=== PATIENT | female | born 1975 | race Caucasian/White ===

== ENCOUNTER 2018-04-24 19:07 | Emergency (ER) | payer MEDICAID, SELFPAY ==
[2018-04-24 19:07] VITALS: BP 124/80; PULSE 97; RESP 20; TEMP 36.7; O2SAT 95; BMI 21.2
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
[2018-04-24] MEDS: HYDROcodone Bitartrate/Apap 5/325 Tablet PO (20:25)
== END 2018-04-24 20:26 | disposition home or self-care (01) ==
LOC: ED 20:14
PROVIDERS: Emergency Provider Emergency Medicine; Family Provider Student in an Organized Health Care Education/Training Program; PCP Student in an Organized Health Care Education/Training Program
DX: S00.33XA Contusion of nose, initial encounter (principal); Z79.899 Other long term (current) drug therapy; Y04.2XXA Assault by strike against or bumped into by another person, initial encounter; Y93.89 Activity, other specified; Y92.009 Unspecified place in unspecified non-institutional (private) residence as the place of occurrence of the external cause; Y99.8 Other external cause status
CPT/HCPCS: 99283

== ENCOUNTER → 2018-08-08 16:35 | Outpatient (CLI) | payer MEDICAID, SELFPAY ==
--- NOTE | 2018-08-08 16:39 | CT_ITS ---
STUDY: CT ABDOMEN AND PELVIS WITHOUT CONTRAST REASON FOR EXAM: Female, 43 years old. Right flank pain RADIATION DOSAGE (If Supplied By Facility): CTDIvol = ( 6.04 ) mGy, DLP = ( 276.33 ) mGycm TECHNIQUE: Transaxial images were obtained from the dome of the diaphragm to the symphysis pubis without oral contrast, and without intravenous contrast. Sagittal and coronal images were reconstructed. Individualized dose optimization techniques were used for this CT. COMPARISON: October 03, 2014 FINDINGS: Minor subsegmental atelectasis in left lower lobe. Moderate-sized pericardial effusion is observed Small hiatal hernia is present. Normal liver. Normal gallbladder and extrahepatic biliary system. Normal spleen. Normal pancreas. Normal bilateral adrenal glands. There is moderate dilatation of the right renal collecting system and moderate to severe dilatation of the ureter which appear to be in association with 2 calculi in the distal ureter proximal to the ureterovesical junction with the larger calculus measuring approximately 5 to 6 mm in size. No renal masses given on unenhanced nature of the study. Normal left kidney. Normal visualized stomach. Normal small intestine. Minor diverticular changes of the sigmoid colon without evidence for acute epiglottitis. Appendix not visualized status post appendectomy Normal abdominal aorta. Normal inferior vena cava. Normal retroperitoneum. Uterus not visualized status post hysterectomy Normal urinary bladder. Normal abdominal wall. Lumbar spine demonstrates mild spondylosis. CT/Abdomen/Pelvis without Cont IMPRESSION: Moderate to severe right hydroureteronephrosis secondary to 2 calculi in the distal ureter proximal to the ureterovesical junction the larger measuring approximately 5 to 6 mm in size. Minor diverticular changes of the colon without evidence for acute diverticulitis Electronically Signed: Davis Zheng MD at 17:03 EST , Service support ,
== END ==
PROVIDERS: Family Provider Student in an Organized Health Care Education/Training Program; PCP Student in an Organized Health Care Education/Training Program; Referring Provider Urology; Visit Provider Urology
DX: N13.30 Unspecified hydronephrosis (principal); R10.9 Unspecified abdominal pain
CPT/HCPCS: 74176

== ENCOUNTER 2018-08-13 12:52 | Day surgery (SDC) | payer MEDICAID, SELFPAY ==
[2018-08-13 13:11] VITALS: BP 101/68; PULSE 64; RESP 16; TEMP 36.9; O2SAT 99; BMI 21.1
--- NOTE | 2018-08-13 13:22 | PCM.DC.URO ---
Discharge Diet: No Restrictions Discharge Activity: May not drive while taking narcotic pain medications. May resume sexual activity in: 2 weeks Call your doctor if you observe: Fever of 101 or Higher, Inability to urinate, Shortness of breath, Chest pain, Calf discomfort, Uncontrolled pain Allergies/Adverse Reactions: Allergies Sulfa (Sulfonamide Antibiotics) Allergy (Verified 08/12/18 11:23) Hives Medications to take at Discharge Linaclotide [Linzess] 72 mcg PO DAILY PRN 04/24/18 Cephalexin [Keflex] 500 mg PO Q12 3 Days #6 cap 08/13/18 Hydrocodone Bitart/Apap 5-325 [[place] 5MG-325MG] 1 tab PO Q4H PRN PRN 7 Days #20 tab 08/13/18 Phenazopyridine HCl [Pyridium] 200 mg PO TID PRN PRN 7 Days #30 tab 08/13/18 The following prescriptions were given: Hydrocodone Bitart/Apap 5-325 [[place] 5MG-325MG] 1 tab PO Q4H PRN PRN 7 Days #20 tab PRN Reason: Pain Cephalexin [Keflex] 500 mg PO Q12 3 Days #6 cap Phenazopyridine HCl [Pyridium] 200 mg PO TID PRN PRN 7 Days #30 tab PRN Reason: Bladder Spasms Primary Care Physician: Darinel Roberts DO [Primary Care Provider] - Test Results: Test results from this visit will be discussed in further detail at your follow-up appointment, if applicable. Please Follow Up With: Christina Freed MD When: 1 week, call office for appt Proposed Discharge Date: 08/13/18
--- NOTE | 2018-08-13 13:25 | OP.PCM_ITS ---
Problem List (1) Right ureteral calculus Status: Acute Report of Operation Date of Procedure: 08/13/18 Pre-Operative Diagnosis: right ureteral calculus Post-Operative Diagnosis: same Surgery/Procedure Performed:: cystoscopy, right ureteral stent insertion. Description of Surgical Findings:: unable to get ureteroscopy past the distal ureter to the stone. stent inserted with significant urine through the stent. Type of Anesthesia:: General Specimen's removed: none Description of Procedure: The patient is a 43-year-old female presented the office with abdominal pain and a CT scan showing right distal ureteral calculus with hydronephrosis. After discussing the risks, benefits and alternatives to the procedure with the patient and her , we agreed to proceed with surgical intervention given that the stone is likely been present for about 3 weeks. She was taken to the operating room and placed on the operating room table in supine position. Anesthesia monitored the head, neck, airway, IV access, vital signs throughout the case. Once anesthesia was appropriately administered the patient was placed in dorsal lithotomy position was prepped and draped in usual sterile fashion. A cystourethroscopy was then performed revealing no evidence of bladder mucosal abnormality including lesion or mass or foreign body. There was increased injection throughout the entire bladder mucosa though. At this time the right ureteral orifice was clearly identified and was intubated with a 0.035 Glidewire. Fluoroscopy revealed that the Glidewire was curled in the renal pelvis. I was unable to pass the semirigid ureteroscope through the distal aspect of the ureter and utilized a 0.025 Glidewire. I was still unable to pass the scope and I made the decision to place a ureteral stent for passive dilation. Using the 0.035 Glidewire a 6 Frisian 24 cm double-J ureteral stent was easily placed with good curling in the renal pelvis as well as the urinary bladder. A significant amount of urine was seen exuding from the holes of the ureteral stent. The patient tolerated the procedure well and was awakened and taken to the recovery room in good condition. There were no complications during this procedure. Grafts/Implants Used: 6x24 JJ ureteral stent - Complications none - Admit VTE Documentation VTE Present on Admission: Yes VTE Mechan Device Prophylaxis: SCD's VTE Pharm Prophylaxis ordered?: No Reason prophylaxis not ordered:: Treatment Not Indicated
[2018-08-13] MEDS: Cefazolin 2 GM in 0.9% Normal Saline 100 ML IV (14:10)
[2018-08-13 14:23] VITALS: BP 100/70; BP 101/68; PULSE 60; RESP 18; TEMP 36.2; O2SAT 100
[2018-08-13 14:30] VITALS: BP 101/68; BP 106/68; PULSE 72; RESP 18; O2SAT 100
[2018-08-13 14:39] VITALS: BP 101/68; BP 97/68; PULSE 65; RESP 16; TEMP 36.2; O2SAT 100
[2018-08-13 15:25] VITALS: BP 101/68; BP 107/69; PULSE 66; RESP 16; TEMP 36.2; O2SAT 100
== END 2018-08-13 15:28 | disposition home or self-care (01) ==
LOC: SDC 12:53 → AC 12:54
PROVIDERS: Family Provider Student in an Organized Health Care Education/Training Program; PCP Student in an Organized Health Care Education/Training Program; Referring Provider Urology; Visit Provider Urology
PROC: 0TJ98ZZ Inspection of Ureter, Via Natural or Artificial Opening Endoscopic (ICD-10-PCS; CPT 52352; principal; 2018-08-13 14:15)
DX: N13.2 Hydronephrosis with renal and ureteral calculous obstruction (principal); K21.9 Gastro-esophageal reflux disease without esophagitis; Z87.442 Personal history of urinary calculi; Z87.891 Personal history of nicotine dependence; Z79.899 Other long term (current) drug therapy
CPT/HCPCS: 00910; 52332; 76000; J7120; C1769; C2617; J2405

== ENCOUNTER 2018-09-03 09:06 | Day surgery (SDC) | payer MEDICAID, SELFPAY ==
[2018-09-03] VITALS (7 sets, daily range): BP systolic 85–114; BP diastolic 65–81; PULSE 58–74; RESP 16–18; TEMP 36.8–36.9; O2SAT 96–100; BMI 21.6
--- NOTE | 2018-09-03 | CALC_PTH ---
PATIENT: SANDRA ANGULO LOC: [facility] – [place] U#:[id number] AGE/SX: 43/F ROOM: RE09/03/[address]: Dr. Christina Freed MD : 1975 BED: DIS: 09/03/2018 SPEC #: [id number] RECD: 09/03/18 12:38 STATUS: YONI FANI #: [id number] KYLE: 09/03/18 00:[address]: Christina Freed DEPT: SURGICAL PATHOLOGY RECD BY: Mick Funes ENTERED: 09/03/18 12:38 SP TYPE: Calculi OTHR DR: Dr. Darinel Roberts, Tissues: CALCULI Procedures: Surgery Specimen Level I HEADER OPERATION: Cysto, ureteroscopy, retro, laser, stent change PRE-OP DIAGNOSIS: Right distal ureteral calculus with pain TISSUE SUBMITTED: Right distal ureteral calculi GROSS DIAGNOSIS A fragment of stone, clinically right distal ureteral calculus, submitted entirely for analysis. SJ:julisa 09/03/18 COMMENT The calculus is submitted in its entirety for chemical stone analysis. The results from this study will be reported separately. GROSS DESCRIPTION Received is one container labeled with the patient's name and designated right distal ureteral calculi. The specimen consists of a fragment of nunez-light brown stone measuring 0.2 x 0.1 x 0.1 cm. The entire specimen is submitted for stone analysis. / AMY:julisa 09/03/18 CPT: 47968
--- NOTE | 2018-09-03 08:49 | DCINST_ITS ---
Discharge Diet: No Restrictions Discharge Activity: May not drive while taking narcotic pain medications. May resume sexual activity in: 2 weeks Call your doctor if you observe: Fever of 101 or Higher, Inability to urinate, Shortness of breath, Chest pain, Calf discomfort, Uncontrolled pain Allergies/Adverse Reactions: Allergies Sulfa (Sulfonamide Antibiotics) Allergy (Verified 09/02/18 15:20) Hives Medications to take at Discharge Linaclotide [Linzess] 72 mcg PO DAILY PRN 04/24/18 Primary Care Physician: Darinel Roberts DO [Primary Care Provider] - Test Results: Test results from this visit will be discussed in further detail at your follow- up appointment, if applicable. Please Follow Up With: Christina Freed MD When: next week for stent removal, call office for appt. Proposed Discharge Date: 09/03/18
[2018-09-03] MEDS: Cefazolin 2 GM in 0.9% Normal Saline 100 ML IV (10:05)
--- NOTE | 2018-09-03 10:42 | PCM.OPRPT ---
Problem List (1) Right ureteral calculus Status: Acute Report of Operation Date of Procedure: 09/03/18 Pre-Operative Diagnosis: right ureteral calculus Post-Operative Diagnosis: same Surgery/Procedure Performed:: cystoscopy, right ureteroscopy, laser lithotripsy, stone basket extraction and right ureteral stent change Description of Surgical Findings:: stones identified, removed and stent changed. Type of Anesthesia:: General Estimated Blood Loss (mL): 2cc Description of Procedure: The patient is a 43-year-old female who presented 2-3 weeks ago for ureteroscopy and laser lithotripsy of a distal right ureteral calculus. At that time I was unable to obtain access to the stone due to ureteral swelling and a ureteral stent was left in place. The patient now presents for definitive treatment of her stone and stent change. Informed consent was obtained. Patient was taken to the operating room and placed on the operating room table. Anesthesia monitored the head neck, airway, IV access, vital signs throughout the case. Once anesthesia was appropriately administered, the patient was placed in 2 dorsal lithotomy position. She was prepped and draped in usual sterile fashion. A cystourethroscopy was performed and the stent was identified. A 0.035 Glidewire was passed alongside the stent into the renal pelvis. The ureteral stent was then removed through the scope. A semirigid ureteroscope was then used for right ureteroscopy and the stone fragments, multiple, were identified. A 270 ?m laser fiber was used to fragment the stones into multiple small pieces which were then basket removed without difficulty. When the last piece was removed, the ureteroscope was exchanged for the cystoscope and a 6 Vietnamese 24 cm double-J stent was inserted using the indwelling 0.035 Glidewire. Good curling was achieved in the renal pelvis as well as the urinary bladder. The case was done using assistance of fluoroscopy. At this time the bladder was emptied and the Patient was taken to the recovery room in good condition. There were no complications during this procedure. Grafts/Implants Used: right JJ stent - Complications none - Admit VTE Documentation VTE Present on Admission: Yes VTE Mechan Device Prophylaxis: SCD's VTE Pharm Prophylaxis ordered?: No Reason prophylaxis not ordered:: Treatment Not Indicated
[2018-09-09 17:10] LABS: Ca Oxalate, Dihydrate 20 % (.); Ca Oxalate, Monohydrate 65 % (.); Calcium Phosphate 15 % (.)
== END 2018-09-03 12:31 | disposition home or self-care (01) ==
LOC: SDC 09:06 → AC 09:08
PROVIDERS: Family Provider Student in an Organized Health Care Education/Training Program; PCP Student in an Organized Health Care Education/Training Program; Referring Provider Urology; Visit Provider Urology
PROC: 0TJ98ZZ Inspection of Ureter, Via Natural or Artificial Opening Endoscopic (ICD-10-PCS; CPT 52352; principal; 2018-09-03 10:35)
DX: N20.1 Calculus of ureter (principal); K21.9 Gastro-esophageal reflux disease without esophagitis; Z87.891 Personal history of nicotine dependence; Z79.899 Other long term (current) drug therapy
CPT/HCPCS: 52320; 52356; 76000; 82360; 88300; J7120; C1769; C2617; J2405

== ENCOUNTER 2018-09-25 16:02 | Emergency (ER) | payer MEDICAID, SELFPAY ==
[2018-09-03 09:36] VITALS: BMI 21.6
[2018-09-25 16:04] VITALS: BP 113/78; PULSE 97; RESP 15; TEMP 38.2; O2SAT 98; BMI 21.4
[2018-09-25] MEDS: DiphenhydrAMINE 25 MG Capsule PO (16:32)
[2018-09-25] MEDS: predniSONE 20 MG Tablet 60 MG PO (16:32)
--- NOTE | 2018-09-25 16:42 | ED.VISSUMM ---
- ER Visit Summary Date of Service: 09/25/18 Chief Complaint: Rash History of Present Illness: The patient is a 43 F who developed URI symptoms and fever yesterday. She was seen at her PCPs office and was told she had a virus. She woke this morning with diffuse erythema, itching, and burning sensation to her skin. She states she did take Tylenol last night before bed which was a generic brand that she has not taken before. Otherwise there have been no new medications. She states that she did have slight erythema to her face and chest over the past 3 days. She did take 25 mg of Benadryl 1 hour prior to arrival. Physical Examination: Vital signs significant for temperature 100.8 TA in triage. At the time of my examination her oral temperature is 98.3. Other vitals are normal. Patient is sitting upright in bed. She is nontoxic appearing. Head and neck examination is grossly unremarkable. Heart is regular rate and rhythm. Lung sounds are clear. Abdomen is soft and nontender. Skin examination was diffuse erythema to her face and chest with more patchy erythema to her back, abdomen, and upper thighs. This appears to be consistent with viral exanthem. I do not see true urticaria. There are no target lesions are blistered areas. Test Results: [] Emergency Department Course and Treatment: Patient is given an additional 25 mg of Benadryl and 60 mg of prednisone. On repeat evaluation erythema over the face and neck seem to be improving. She does not feel like her skin is burning like it was previously. Rash on her back that is more patchy and consistent with viral exanthem is unchanged. Because patient did have improvement with the Benadryl and prednisone she will be given prescription for prednisone and will continue Benadryl at home. If she worsens she is to return for repeat evaluation. Treatment Plan: [] Disposition: Discharge Impression: Viral exanthem This note was generated with [employer] dictation software. It may contain incorrect words, spelling, and punctuation that were not noted in review of the chart prior to signing ED Disposition - Plan for ED Patient: Referrals: Darinel Roberts DO [Primary Care Provider] -
--- NOTE | 2018-09-25 18:05 | ED.DEP ---
ED Disposition - Plan for ED Patient: Disposition: Home or Assisted Living Instructions: ED Allergic Reaction General Other Prescriptions: Ibuprofen 400 mg PO Q6H PRN PRN #20 tablet PRN Reason: Fever Prednisone 10 mg PO UD #33 tablet Referrals: Darinel Roberts DO [Primary Care Provider] - 3-5 Days
[2018-09-25 18:17] VITALS: BP 135/69; PULSE 75; RESP 16; O2SAT 98
== END 2018-09-25 18:18 | disposition home or self-care (01) ==
PROVIDERS: Emergency Provider Emergency Medicine; Family Provider Student in an Organized Health Care Education/Training Program; PCP Student in an Organized Health Care Education/Training Program
DX: B09 Unspecified viral infection characterized by skin and mucous membrane lesions (principal); Z87.442 Personal history of urinary calculi; Z87.891 Personal history of nicotine dependence
CPT/HCPCS: 99283

== ENCOUNTER 2019-02-27 08:45 | Emergency (ER) | payer OTHER, MEDICAID, SELFPAY ==
[2019-02-27 08:47] VITALS: BP 103/66; PULSE 63; RESP 16; TEMP 36.3; O2SAT 99; BMI 21.4
--- NOTE | 2019-02-27 09:06 | US_ITS ---
STUDY: ABDOMINAL ULTRASOUND - RIGHT UPPER QUADRANT REASON FOR VISIT: Female, 43 years old. Abdominal pain TECHNIQUE: Ultrasound evaluation of the right upper quadrant was performed with real-time and static perez-scale imaging. TECHNICAL QUALITY: Adequate. COMPARISON: None. FINDINGS: Liver: The liver measures 14.9 and a cm. There is normal echogenicity of the liver. The bile ducts are within normal limits. There is hepatic color flow. The direction of portal flow is hepatopetal. There is no demonstrated mass lesion. Gallbladder: There is shadowing obscuring visualization of the gallbladder. There is positive sonographic Hathaway's sign. Common Bile Duct (C.B.D.): The common bile duct measures 3 mm. Pancreas: Normal size of the head, body and tail of the pancreas. There is normal echogenicity of the pancreas. There is no demonstrated pancreatic mass or cyst. Right Kidney: Normal size of the right kidney. The right kidney measures 10.7 cm. Normal renal cortex. The right cortex measures 2 cm. There is no demonstrated renal mass or cyst. There is no right hydronephrosis. US/Gallbladder IMPRESSION: The gallbladder is not visualized due to overlying bowel gas and/or contraction. There is positive sonographic Hathaway sign. Normal caliber CBD. Electronically Signed: Rosendo Kim, at 10:26 EDT Tel , Service support ,
--- NOTE | 2019-02-27 09:08 | ED.DCSUM_ITS ---
- ER Visit Summary Date of Service: 02/27/19 Chief Complaint: Abdominal pain and possible dehydration History of Present Illness: The patient is a 43 F who presents with right upper quadrant abdominal pain that has been constant for the past 2 weeks. Patient states she knows she has a bad gallbladder and was told that if she had pain under her right ribs to come to the emergency department. Patient states the pain is worse with standing and better when she sits or lays down. Patient admits to some intermittent nausea but denies any vomiting. Patient states the pain radiates to her right shoulder. Patient states that she works 7 days a week and is unable to drink water on her job. Patient states she feels like she is dehydrated. Physical Examination: Vital signs are stable. Patient is afebrile. Patient is in no acute distress. Oral mucosa is pink and moist. Neck is supple. Trachea is midline. There is no JVD noted. Heart was regular rate and rhythm. Lungs are clear and equal bilaterally. Abdomen is soft. Bowel sounds are normal. There is right upper quadrant tenderness. There is a positive Hathaway sign. There is no rebound or guarding noted. Cranial nerves II through XII are intact. There are no focal motor or sensory deficits noted. Test Results: CBC and comprehensive metabolic profile was obtained and were within normal limits. Ultrasound of the gallbladder was obtained. The gallbladder was not well visualized to either contraction or overlying bowel gas. There is a positive sonographic Hathaway sign. Common bile duct was normal. The other bile ducts are normal. Liver is normal. Emergency Department Course and Treatment: Patient was given IV fluids. Patient was feeling better on reevaluation. Patient was instructed to follow-up with her primary care physician as scheduled. Patient was instructed to drink plenty of fluids. Patient understood and was agreeable with the plan. All questions were answered. Disposition: Discharge home Impression: Right upper quadrant abdominal pain This note was generated with [employer] dictation software. It may contain incorrect words, spelling, and punctuation that were not noted in review of the chart prior to signing ED Disposition - Plan for ED Patient: Disposition: Home or Assisted Living Diagnosis: Right upper quadrant abdominal pain Instructions: ABDOMINAL PAIN, Unknown Cause, (Female) Referrals: Darinel Roberts, [Primary Care Provider] - Keep Trice appointment
[2019-02-27] MEDS: 0.9% Normal Saline 1,000 ML 1000 ML IV (09:21)
[2019-02-27 09:29] LABS: Absolute Lymphocyte Count 1.89 X10^3/uL (0.83-4.51); Absolute Neutrophil Count 3.2 X10^3/uL (2.0-7.7); Basophil# 0.04 X10^3/uL; Basophil% 0.7 % (0-1); Eosinophil# 0.07 X10^3/uL; Eosinophils% 1.3 % (0-5); Hematocrit 37.5 % (37-47); Hemoglobin 12.4 g/dL (12.0-15.0); Lymphocyte # 1.89 X10^3/ul (4.0); Lymphocyte % 34.2 % (19-41); Mean Corp Hgb Conc 33.1 g/dL (32-36); Mean Corpuscular Volume 84.7 fL (81-99); Mean Platelet Vol. 9.1 fl (6.2-12.0); Monocyte# 0.27 X10^3/uL; Monocyte% 4.9 % (0-10); NRBC Flagged by Analyzer 0 % (0-5); Neutrophil # 3.24 X10^3/uL (2.7-7.7); Neutrophil % 58.5 % (47-70); Platelet Count 295 K/mm3 (150-450); RBC Distribution Width CV 12.5 % (11.6-14.6); RBC Distribution Width SD 38.1 fl (35.1-43.9); Red Blood Count 4.43 M/mm3 (4.2-5.4); White Blood Count 5.5 K/mm3 (4.4-11.0)
[2019-02-27 09:45] LABS: ALB/GLOB Ratio 1.3 RATIO (0.9-2.4); AST(SGOT) 15 U/L (15-37); Alanine Aminotransfer ALT/SGPT 18 U/L (13-56); Alkaline Phosphatase 79 U/L (45-117); Anion Gap 7 (5-15); BUN 7 mg/dL (7-18); BUN/Creat Ratio 9.9 RATIO (10-20); Calcium,Total 9.4 mg/dL (8.5-10.1); Chloride 108 mmol/L (98-107); Creatinine, Serum 0.71 mg/dL (0.55-1.02); EST Glomerular Filtration Rate 94 mL/min (>60); Est Glom Filt Rate - Afr Amer 114 mL/min (>60); Estimated Creatinine Clearance 100.94 ml/min; Glucose 90 mg/dL (74-106); Lipase 120 U/L (73-393); Potassium 3.8 mmol/L (3.5-5.1); Sodium Level 144 mmol/L (136-145)
[2019-02-27 11:12] VITALS: BP 112/67; PULSE 52; RESP 16; O2SAT 100
== END 2019-02-27 11:25 | disposition home or self-care (01) ==
PROVIDERS: Emergency Provider Emergency Medicine; Family Provider Student in an Organized Health Care Education/Training Program; PCP Student in an Organized Health Care Education/Training Program
DX: R10.11 Right upper quadrant pain (principal)
CPT/HCPCS: 76705; 80053; 83690; 85025; 96360; 99283; J7030; A4216

== ENCOUNTER 2019-03-04 09:37 | Day surgery (SDC) | payer OTHER, MEDICAID, SELFPAY ==
[2019-03-04] VITALS (7 sets, daily range): BP systolic 98–121; BP diastolic 61–93; PULSE 60–84; RESP 16; TEMP 36.1–36.6; O2SAT 97–100; BMI 21.4
--- NOTE | 2019-03-04 | IMM_PTH ---
PATIENT: SANDRA ANGULO LOC: [facility] [place] U#:[id number] AGE/SX: 43/F ROOM: RE03/04/[address]: Dr. Heaven Charles MD : 1975 BED: DIS: 03/04/2019 SPEC #: [id number] RECD: 03/06/19 07:47 STATUS: YONI REQ #: [id number] KYLE: 03/04/19 00:[address]: Heaven Charles DEPT: IMMUNOHISTOCHEMISTRY RECD BY: Aruna Miller ENTERED: 03/06/19 07:48 SP TYPE: IMMUNO OTHR DR: Dr. Darinel Roberts DO Tissues: Skin of abdomen, NOS Procedures: CK5-6 (initial) MACRO (add) MART1 (add) P40 (add) S-100 (add) PHYSICIAN & INSTITUTION [place] [id number] SPECIMEN INFORMATION: Tissue Source: B. Skin lesion, abdomen Clinical Info: Cholelithiasis, right upper quadrant abdominal pain Specimen Number: [id number] CPT code: 03216, 31195 x4 METHODOLOGY: Deparaffinized sections of prefer/formalin-fixed tissue or PAP/DQ stained slides are incubated with monoclonal/polyclonal antibodies/oligonucleotide probes. Localization is made via biotin free immunoperoxidase method. Appropriate controls are performed and reacted as expected. Results on target cell population are indicated in the following table: RESULTS: ANTIBODY / CLONE RESULT Block B S-100 (4C4.9) positive MART-1 (A-103) positive CK5-6 (D5 & 1684) negative P40 (BC28) negative Macro (HAM-56) negative These tests were developed and their performance characteristics determined by [facility]. They may not have been cleared or approved by the U.S. Food and Drug Administration. The FDA has determined that such clearance or approval is not necessary. INTERPRETATION: B. Skin lesion, abdomen, shave biopsy: Atypical compound melanocytic proliferation. See comment. SJ:julisa 03/11/19 Comment: The specimen was sent to [facility] for expert opinion and reviewed by Dr. Harris and above diagnosis is rendered. Case has been reviewed in consultation with Dr. Harvey who concurs with the above diagnosis. IDC:AM
--- NOTE | 2019-03-04 09:21 | PCM.HP.BLA ---
History and Physical Date of Admission: 03/04/19 Lesly Gregory 1975 ? ? CHIEF COMPLAINT: Abdominal Pain ? HPI: The patient is a 43 year old female presents with right upper quadrant abdominal pain. She has had previous diagnosis of cholelithiasis, but at the time, she was asymptomatic and did not want to schedule for surgery. She presented to [facility] ED 02/27/19 with abdominal pain and dehydration. She complains that she can't drink water - her work won't allow it. 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 She states that she has to stand on a step to work the machinery and gets dizzy with this. She has increased tiredness. She denies fevers. Complains of sharp pain occasionally in the right upper quadrant of the abdomen, most of the time, it is a dull ache. ?? PAST MEDICAL HISTORY ? Anemia ? ? Chronic constipation ? ? Hydronephrosis concurrent with and due to calculi of kidney and ureter 09/2018 ? Kidney stone 09/2018 ? right side ? Lactose intolerance ? ? PAST SURGICAL HISTORY ? APPENDECTOMY ? 11/30/14 ? ruptured ? COLONOSCOP W/ OR W/O [facility] SPEC ? 01/23/2018 ? ESWL ? 09/2018 ? EXCIS BREAST LESION ? 2000 left breast ? TOOTH EXTRACTION ? 2002 ? TOTAL ABDOM HYSTERECTOMY 11/13/14 Hysterectomy, DAMARIS, BSO ? ? Current Outpatient Medications: benzonatate (TESSALON PERLE) 100 mg capsule Take 1 capsule by mouth three times daily as needed. linaclotide (LINZESS) 145 mcg cap Take 1 capsule by mouth once daily. multivitamin,therapeutic (MULTIVITAMIN-4) 1 mL once daily. fluticasone (FLONASE) 50 mcg/actuation nasal spray Use 2 Sprays in each nostril once daily. Rinse mouth after use. PSYLLIUM SEED, WITH DEXTROSE, (FIBER ORAL) Take by mouth. polyethylene glycol 3350 (MIRALAX) 17 gram/dose powder 17 g (~1 heaping tablespoon) 4 to 8 ounces of beverage, once daily. ? ? ALLERGIES: Sulfa (Sulfonamide Antibiotics); Tylenol [Acetaminophen]; Zantac [Ranitidine] ? PERSONAL HISTORY: Social History Socioeconomic History Marital status: Single Smoking status: Former Smoker Packs/day: 0.25 Years: 20.00 Pack years: 5 Types: Cigarettes Start date: 11/13/2014 Quit date: 01/24/2016 Years since quittin.0 Smokeless tobacco: Never Used Substance and Sexual Activity Alcohol use: No Drug use: No FAMILY HISTORY ? Cancer Sister ? kidney ? Diabetes Maternal Grandmother ? ? Skin Cancer Mother ? ? Cancer Sister? lung-smoker ? ? 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 PHYSICAL EXAMINATION: General: The patient is 43 year old female, well nourished, well hydrated in no acute distress. The patient is oriented to time, place, and person. VITALS: Blood pressure 100/60, pulse 92, temperature 36.7 ?C (98 ?F), temperature source Temporal Artery, resp. rate 16, height 172.7 cm (5' 8), weight 63.5 kg (140 lb), SpO2 100 %. Body mass index is 21.29 kg/m?. Head ? Normocephalic. EOM intact with sclera clear and no icterus noted. Mouth with mucus membranes moist. Neck - supple with no jugular venous distention noted. Trachea is midline. No masses noted. Lungs ? clear to auscultation. Normal breath sounds. No rales/rhonchi/wheezing noted. No labored breathing noted, such as retractions. No cough heard. Heart ? normal S1 and S2 auscultated. No rubs/clicks/murmurs noted. Regular rate. Abdomen ? soft and benign but tender in right upper quadrant with no peritoneal signs. Normal bowel sounds. No masses noted. Extremities ? no calf tenderness noted. No pitting edema noted. Skin ? normal skin integrity. Neurological ? gait normal, no focal deficits noted Psych ? calm and appropriate ? ? IMPRESSION: cholelithiasis, right upper quadrant abdominal pain ? PLAN: I have discussed the above with the patient . I have offered laparoscopic cholecystectomy, possible cholangiograms I have explained the procedure to the patient. I have counseled the patient as to the risks of the procedure, including but not limited to: infection, bleeding, injury to any blood vessels/nerves, scar tissue, injury to any intrabdominal organs, injury to bowel/bladder, injury to the common bile duct/biliary tree, bile leakage, intraabdominal abscess/bleeding, hernias at incisional sites, wound infections, complications of anesthesia, etc. ? the patient understands. The patient wishes to proceed. I have answered all questions to the patient?s satisfaction and the patient has no further questions. . Diagnoses: (R10.11) Right upper quadrant abdominal pain (primary encounter diagnosis) (K80.20) Calculus of gallbladder without cholecystitis without obstruction Return to Clinic: The patient is instructed to follow-up with me after the procedure in 1-2 weeks. ?
--- NOTE | 2019-03-04 09:47 | EKG12_ITS ---
Test Reason : PRE OP Blood Pressure : / mmHG Vent. Rate : 067 BPM Atrial Rate : 067 BPM P-R Int : 158 ms QRS Dur : 076 ms QT Int : 394 ms P-R-T Axes : 060 059 078 degrees QTc Int : 416 ms Normal sinus rhythm with sinus arrhythmia Normal ECG Confirmed by ZACHARIAH BUTTS, DWIGHT ([id number]), associate editor GINGER HANSEN ([id number]) on 03/11/2019 12:11:14 PM Referred By: Heaven Charles Confirmed By:DWIGHT SONI MD
[2019-03-04] MEDS: Lactated Ringers 1,000 ML 75 ML IV ×2 (10:23→14:25)
[2019-03-04] MEDS: Cefazolin 2 GM in 0.9% Normal Saline 100 ML IV (11:23)
--- NOTE | 2019-03-04 11:27 | DCINST_ITS ---
Discharge Diet: No Restrictions - drink plenty of water avoid carbonated beverages for a couple of days as this will cause bloating which will be uncomfortable after recent surgery Discharge Activity: Return to Normal Activity, May not drive while taking narcotic pain medications. Lifting Restrictions: no lifting greater than 20 pounds for two weeks Additional Activity Instructions:: Regular walking is highly encouraged Call your doctor if your incision/area has: Continuous Slow Oozing, Foul Smelling Discharge Call your doctor if you observe: Fever of 101 or Higher Additional Dressing/Incision Instructions:: leave dressings in place. may get wet in shower. do not soak - no tub baths/swimming Additional Instructions: recommended pain medication regimen: take 650 mg acetaminophen, then in three hours take 600 mg ibuprofen, then in three hours take 650 mg acetaminophen, then in three hours take 600 mg ibuprofen, and so on for about 2 days take narcotic pain medications for breakthrough pain and at night Allergies/Adverse Reactions: Allergies acetaminophen [From Tylenol] Allergy (Verified 03/04/19 10:06) Hives ranitidine [From Zantac] Allergy (Verified 03/04/19 10:06) Hives Sulfa (Sulfonamide Antibiotics) Allergy (Verified 03/04/19 10:06) Hives Medications to take at Discharge Multivitamin with Minerals [Multiple Vitamin] 1 ea PO DAILY 02/27/19 Oxycodone [Oxyir] 5 mg PO Q8H PRN PRN 5 Days #15 tab 03/04/19 The following prescriptions were given: Oxycodone [Oxyir] 5 mg PO Q8H PRN PRN 5 Days #15 tab PRN Reason: Mod-Severe Pain (4-04/17) Prescription Printed Primary Care Physician: Darinel Roberts DO [Primary Care Provider] - Test Results: Test results from this visit will be discussed in further detail at your follow- up appointment, if applicable. Please Follow Up With: Heaven Charles MD - call When: to be seen in 1-2 weeks, please call the office for time and date, thank tiarra
--- NOTE | 2019-03-04 11:30 | RAD_ITS ---
STUDY: INTRAOPERATIVE GLANDULAR. REASON FOR EXAM: Female, 43 years old. Laparoscopic cholecystectomy. FLUOROSCOPY TIME (if supplied): (4:07) minutes/seconds TECHNIQUE: An intraoperative quadrant was performed by the surgeon. Imaging was submitted. COMPARISON: None. FINDINGS: The intrahepatic ducts are unremarkable. The common bile duct is not dilated. A small air bubble is seen in the proximal portion of the common hepatic duct. Free flow of contrast is seen in duodenum. RAD/Cholangiogram/ O R,Initial IMPRESSION: Unremarkable intraoperative cholangiogram. Electronically Signed: Alexis Rai, at 14:34 EDT , Service support ,
--- NOTE | 2019-03-04 11:30 | GALL_PTH ---
PATIENT: SANDRA ANGULO LOC: [facility] [place] U#:[id number] AGE/SX: 43/F ROOM: RE03/04/[address]: Dr. Heaven Charles MD : 1975 BED: DIS: 03/04/2019 SPEC #: [id number] RECD: 03/04/19 13:41 STATUS: YONI REThuy #: [id number] KYLE: 03/04/19 11:[address]: Heaven Charles DEPT: SURGICAL PATHOLOGY RECD BY: Venkatesh Whittaker ENTERED: 03/04/19 14:26 SP TYPE: KARLIE PARKER DR: Dr. Darinel Roberts DO Tissues: A - Gallbladder, NOS B - Skin of abdomen, NOS Procedures: Surgery Specimen Level III Surgery Specimen Level IV HEADER OPERATION: Laparoscopic cholecystectomy with intraoperative cholangiograph PRE-OP DIAGNOSIS: Cholelithiasis, right upper quadrant abdominal pain TISSUE SUBMITTED: A. Gallbladder, B. Skin lesion, abdomen MICROSCOPIC DIAGNOSIS A. Gallbladder: Mild chronic cholecystitis and cholelithiasis. B. Skin lesion, abdomen, shave biopsy: Atypical compound melanocytic proliferation associated with a lichenoid inflammatory cell infiltrate and many melanophages, extending to the peripheral biopsy margins. See comment. SJ:sp/rg 03/11/19 COMMENT The specimen was sent to [facility] and reviewed by Dr. Harris and the above diagnosis is rendered. The complete report is viewable in patient's EMR. The comment was also made that complete excision of the lesion with a margin of normal non-scarred skin is recommended for complete histologic examination and treatment. Clinical correlation and appropriate follow up are necessary. Immunohistochemistry ([id number]) supports the above diagnosis. Case has been reviewed in consultation with Dr. Harvey who concurs with the above diagnosis. IDC:AM MICROSCOPIC DESCRIPTION Slides are reviewed. GROSS DESCRIPTION A. Received in fixative is one container labeled with the patient's name and designated gallbladder. The specimen consists of a previously, partially opened gallbladder measuring 9 cm in length and 2.5 cm in diameter. The external surface is pink-nunez, smooth and glistening for the most part. Focally it is granular, hemorrhagic and contains cautery artifact. The gallbladder contains a small amount of green-yellow mucoid bile and multiple yellow irregular stone and sludge material measuring in aggregate 3 x 2.5 x1 cm and 0.1 to 0.5 cm in greatest dimension. The mucosa is bile-stained and without any mass lesions. The gallbladder wall measures up to 0.2 cm in thickness. Electrical Instrument Technician sections from the gallbladder and the cystic duct are submitted in one cassette. B. Received in fixative is one container labeled with the patient's name and designated skin lesion abdomen. The specimen consists of a round piece of brown skin measuring 0.3 cm in diameter and 0.1 cm in length. The entire specimen is submitted in one cassette. / AMY:joann 03/04/19 TC: 5 CPT: 59781, 53048
[2019-03-04] MEDS: Bupiv/Epi 0.25% 30 ML Vial (12:55)
--- NOTE | 2019-03-04 13:26 | PCM.OPRPT ---
Report of Operation Date of Procedure: 03/04/19 Pre-Operative Diagnosis: cholelithiasis Post-Operative Diagnosis: cholelithiasis, chronic cholecystitis Surgery/Procedure Performed:: laparoscopic cholecystectomy with cholangiograms Description of Surgical Findings:: impacted stones in the cystic duct which were milked out, cholangiograms were normal, chronic adhesions over liver and around gallbladder consulting services project manager: Sarai Vaca Type of Anesthesia:: General Anesthesiologist: Jennifer Cloud Specimen's removed: gallbladder and contents Estimated Blood Loss (mL): < 10 ml Fluids Replaced: see anesthesia note Description of Procedure: After informed consent was given, the patient was brought to the Operating Room. Appropriate time out protocol was followed. She was then placed in the supine position. The patient was then placed under general endotracheal anesthesia. The abdomen was then prepped with a sterile surgical skin preparation and sterile surgical drapes were placed. The supra-umbilical skin fold was grasped with penetrating clamps and the skin and subcutaneous tissues were infiltrated with 0.25% marcaine with epinephrine. A skin incision was then made with a 15 blade scalpel. The incision was carried down and through the fascia under direct visualization. Once, the abdominal cavity was entered, a 12 mm trocar was placed. A CO2 pneumoperitoneum was then created. A 10mm laparoscope was then inserted into the trocar and careful attention was directed to the intraabdominal contents. There was no evidence of injury to any intraabdominal organs from insertion of the Veress needle or the trocar. Under direct visualization, a 5mm subxiphoid trocar and two lateral 5mm right subcostal trocars were placed. The skin and subcutaneous tissues at these sites were infiltrated with 0.25% marcaine with epinephrine prior to placement of these trocars. Attention was then directed to the right upper quadrant of the abdomen. There were dense adhesions over the dome of the liver. These were taken down by sharp dissection and electrocautery. Graspers were placed in the lateral trocars to grasp the distal aspect of the gallbladder and direct it cephalad and to grasp the gallbladder at Cat?s pouch and direct it laterally. There were dense adhesions around the gallbladder. These were taken down by blunt and sharp dissection. Any hemorrhage was adequately controlled with electrocautery. Dissection then began on the proximal gallbladder continuing down to the area of the triangle of Calot to bluntly dissect out the cystic duct. The cystic duct was isolated out. It appeared to have stones impacted within it. A clip was then placed on the neck of the gallbladder. A small ductotomy was then made. The stones in the cystic duct were milked out and removed via the ductotomy. This took some time. However, the entire cystic duct was cleared of stones. A Ranfac catheter was brought in through a separate skin incision and placed into the cystic duct. An intraoperative cholangiogram was performed under fluoroscopy. The xray revealed no lesions in the common bile duct, arborization of the biliary tree, and good flow into the duodenum. The Ranfac catheter was then removed and two clips were placed proximal to the ductotomy and the cystic duct was then transected. The cystic artery was visualized and bluntly isolated and then two clips were placed proximally and one clip distally and then it was transected between the proximal and distal clips. The gallbladder was then from the liver bed using electrocautery. It was to be brought out of the umbilical port. It was then forwarded to pathology for analysis. The liver bed was carefully examined. There was no evidence of bile leakage or bleeding. The cystic duct stump and cystic artery stump had their clips intact and there was no evidence of bile leakage or bleeding. The remainder of the abdomen was grossly normal. The CO2 was released and all trocars removed intact. The periumbilical fascia was approximated with a [id number] 0 vicryl suture. All skin incision were closed with 4-0 monocryl in a subdermal fashion. Cavilol and Steristrips were used to reinforce the skin closure. Sterile dressings were applied to all wounds. The patient was extubated and brought to the Recovery Room in stable condition. - Complications none noted - Admit VTE Documentation VTE Present on Admission: Yes VTE Mechan Device Prophylaxis: SCD's
== END 2019-03-04 15:46 | disposition home or self-care (01) ==
LOC: SDC 09:38 → AC 09:39
PROVIDERS: Family Provider Student in an Organized Health Care Education/Training Program; PCP Student in an Organized Health Care Education/Training Program; Referring Provider Surgery; Visit Provider Surgery
PROC: (CPT 47610; principal; 2019-03-04 11:10)
DX: K80.10 Calculus of gallbladder with chronic cholecystitis without obstruction (principal); K82.8 Other specified diseases of gallbladder; L98.8 Other specified disorders of the skin and subcutaneous tissue; K21.9 Gastro-esophageal reflux disease without esophagitis; J30.9 Allergic rhinitis, unspecified; Z87.442 Personal history of urinary calculi; Z87.891 Personal history of nicotine dependence; Z79.899 Other long term (current) drug therapy
CPT/HCPCS: 47563; 74300; 76000; 88304; 88305; 88341; 88342; 93005; J7120; J2405

== ENCOUNTER → 2020-04-14 | Outpatient (CLI) | payer MEDICAID, SELFPAY ==
[2019-03-04 10:06] VITALS: BMI 21.4
--- NOTE | 2020-04-14 16:06 | RAD_ITS ---
STUDY: X-RAY - ABDOMEN/PELVIS REASON FOR EXAM: Female, 44 years old. HX OF KIDNEY STONES ON BOTH SIDES PER PATIENT. HX OF A LITHOTRIPSY ABOUT 1 YEAR AGO. TECHNIQUE: Two AP supine views of the abdomen and pelvis. COMPARISON: Report of previous study of 11/30/2014 FINDINGS: Normal visualized lung bases. There is an unremarkable bowel gas pattern. There is no demonstrated free abdominal air. The visualized liver, spleen and kidneys are grossly normal in size and morphology. Surgical clips are seen in the left pelvis. There is a small sclerotic focus of the left iliac wing seen on prior CT study of the abdomen and pelvis of 10/31/2014. RAD/Abdomen Single View IMPRESSION: Small sclerotic focus of the left iliac wing most likely representing benign process such as bone island. Surgical clips of the left pelvis. No abnormal intra-abdominal or intrapelvic calcifications are seen. There is no evidence of ileus or obstruction. Electronically Signed: Harsh Slaughter MD at 21:19 EDT , Service support ,
== END | disposition home or self-care (01) ==
LOC: MTRAD 16:05
PROVIDERS: PCP Student in an Organized Health Care Education/Training Program; Referring Provider Urology; Visit Provider Urology
DX: N20.0 Calculus of kidney (principal)
CPT/HCPCS: 74018

== ENCOUNTER 2021-09-10 08:53 | Outpatient (CLI) | payer MEDICAID, SELFPAY ==
--- NOTE | 2021-09-10 09:02 | US_ITS ---
STUDY: RENAL ULTRASOUND - COMPLETE REASON FOR EXAM: Female, 46 years old. STONE TECHNIQUE: Ultrasound evaluation of the kidneys was performed with real-time and static العراقي-scale imaging. COMPARISON: August 08, 2018 CT scan abdomen and pelvis FINDINGS: RIGHT KIDNEY: Normal location of the right kidney, which is normal in size. The right kidney measures 10.9 x 4.7 x 4.5 cm. There is a normal cortex of the right kidney. The renal cortex measures 1.3 cm. There is no right renal mass or cyst. There are no right renal calculi. There is no right hydronephrosis. The hydronephrosis seen on prior study right kidney, has resolved DISTAL RIGHT URETER: There is non-visualization of the distal right ureter. There is no demonstrated right ureterovesical junction calculus. There is a visualized right ureteral jet. LEFT KIDNEY: Normal location of the left kidney, which is normal in size. The left kidney measures 11.7 x 4.7 x 5.1 cm. There is a normal cortex of the left kidney. The renal cortex measures 1.9 cm. There is no left renal mass or cyst. There are no left renal calculi. There is no left hydronephrosis. DISTAL LEFT URETER: There is non-visualization of the distal left ureter. There is no demonstrated left ureterovesical junction calculus. There is a visualized left ureteral jet. BLADDER: The bladder is mostly decompressed. The wall is mildly thickened measuring approximately 70 mm allowing for the decompressed appearance of the bladder with a volume of 26 mL. US/Kidney and Bladder IMPRESSION: No hydronephrosis. Mild bladder wall thickening associated with the decompressed appearance of the bladder. Cannot entirely exclude cystitis. Recommend correlation with urinary laboratory values. Electronically Signed: Torri Nieto MD at 15:31 EST ,
== END 2021-09-10 23:59 | disposition home or self-care (01) ==
LOC: US 08:56
PROVIDERS: PCP Student in an Organized Health Care Education/Training Program; Referring Provider Urology; Visit Provider Urology
DX: R10.9 Unspecified abdominal pain (principal); N20.0 Calculus of kidney
CPT/HCPCS: 76770